=== PATIENT | female | born 1945 | race African-American/Black ===

== ENCOUNTER 2021-09-28 12:58 | Inpatient (IN) | payer OTHER ==
[2021-09-28] MEDS ORDERED: SODIUM CHLORIDE 0.9% 500 ML INFUS.BAG IV ONE (13:09)
[2021-09-28] MEDS ORDERED: ACETAMINOPHEN 1000 MG/100 ML BAG IVPB ONE (13:09)
[2021-09-28] MEDS ORDERED: ACETAMINOPHEN INJECTION 100 ML IVPB ONE (13:42)
[2021-09-28 14:02] LABS: HEMATOCRIT 31.1 % (32.4-45.2); HEMOGLOBIN 9.7 GM/dL (10.7-15.3); MCH 26.4 pg (25.7-33.7); MCHC 31.3 g/dl (32.0-36.0); MEAN CELL VOLUME 84.2 fl (80-96); MEAN PLT VOLUME 9.2 fl (7.5-11.1); PLATELET COUNT 172 10^3/uL (134-434); RDW 19.7 % (11.6-15.6)
[2021-09-28 14:16] LABS: CALCIUM 11.3 mg/dL (8.5-10.1)
[2021-09-28 14:17] LABS: ALBUMIN 2.8 g/dl (3.4-5.0); BLOOD UREA NITROGEN 94.2 mg/dL (7-18)
[2021-09-28 14:20] LABS: CREATININE 1.7 mg/dL (0.55-1.3)
[2021-09-28 14:21] LABS: ACTIVATED PTT 36.4 SECONDS (25.2-36.5); INR 1.28 (0.83-1.09); PROTHROMBIN TIME (PATIENT) 14.8 SEC (9.7-13.0)
[2021-09-28 14:21] LABS: BILIRUBIN,TOTAL 1.8 mg/dL (0.2-1)
[2021-09-28 14:22] LABS: TOT PROT 6.6 g/dl (6.4-8.2)
[2021-09-28 14:30] LABS: EPI CELLS 7 /uL (0-25.1); HYALINE CASTS 0 /uL (0-3.1); URINE APPEARANCE CLEAR; URINE BACTERIA 149 /uL (0-1359); URINE BILIRUBIN NEGATIVE (NEGATIVE); URINE COLOR DK YELLOW; URINE GLUCOSE (UA) NEGATIVE (NEGATIVE); URINE KETONE NEGATIVE (NEGATIVE); URINE LEUK ESTERASE NEGATIVE (NEGATIVE); URINE NITRITE NEGATIVE (NEGATIVE); URINE PROTEIN 1+ (NEGATIVE); URINE RBC 12 /uL (0-23.9); URINE UROBILINOGEN 0.2 mg/dL (0.2-1.0); URINE WBC 3 /uL (0-25.8)
[2021-09-28] MEDS ORDERED: NOREPINEPHRINE D5W PREMIX 16,000 MCG/500 ML BAG IVPB SCH (15:30)
[2021-09-28] MEDS ORDERED: RAPID SEQUENCE INTUBATION KIT NR ONE (15:56)
[2021-09-28] MEDS ORDERED: VASOPRESSIN 40 UNITS/100 ML BAG IV SCH (16:00)
[2021-09-28] MEDS ORDERED: MIDAZOLAM IN 0.9 % SOD.CHLORID 1 MG/1 ML PLAST..BAG ONE (16:29)
[2021-09-28] MEDS ORDERED: MIDAZOLAM IN 0.9 % SOD.CHLORID 100 MG/100 ML PLAST..BAG IVPB SCH (16:30)
[2021-09-28] MEDS ORDERED: FENTANYL IVPB 500 MCG/100 ML BAG IVPB SCH (16:30)
[2021-09-28] MEDS ORDERED: FENTANYL NS IVPB 500 MCG/100 ML BAG IVPB ONE (16:50)
[2021-09-28 17:13] LABS: ANISOCYTOSIS 1+; MACROCYTOSIS 1+; OVALOCYTE 1+; PLATELET ESTIMATE NORMAL
[2021-09-28 17:18] LABS: ARTERIAL BLD GAS O2 SATURATION 99.7 % (95-98); ARTERIAL BLOOD GAS BASE EXCESS 0.9 mmol/L (-2-2); ARTERIAL BLOOD GAS PO2 294.8 mmHg (80-100); ARTERIAL BLOOD GAS pH 7.366 (7.350-7.450)
[2021-09-28 17:20] LABS: ALLENS TEST POSITIVE
[2021-09-28 17:21] LABS: VENT MODE A/C; VENT RATE 14
[2021-09-28] MEDS: LACTATED RINGERS SOLUTION 1,000 ML/1,000 ML INFUS.BAG IV SCH (19:00)
[2021-09-28] MEDS: NOREPINEPHRINE D5W PREMIX 16,000 MCG/500 ML BAG IVPB SCH (19:00)
[2021-09-28] MEDS: MIDAZOLAM IN 0.9 % SOD.CHLORID 100 MG/100 ML PLAST..BAG IVPB SCH (19:00)
[2021-09-28] MEDS ORDERED: FENTANYL NS IVPB 500 MCG/100 ML BAG IVPB SCH (19:07)
[2021-09-28] MEDS ORDERED: DEXTROSE 5%-WATER 100 ML IVPB ONE (20:00)
[2021-09-28] MEDS ORDERED: PIPERACILLIN/TAZOBACTAM 4.5 GM VIAL IVPB ONE (20:00)
[2021-09-28] MEDS: VASOPRESSIN 40 UNITS/100 ML BAG IV SCH (21:03)
[2021-09-28] MEDS: VANCOMYCIN IVPB SCH (21:06)
[2021-09-28] MEDS: PIPERACILLIN/TAZOB 4.5 GM 4.5 GM in DEXTROSE 5%-WATER 100 ML IVPB SCH (21:07)
[2021-09-28] MEDS: MUPIROCIN 2% TOPICAL OINTMENT FOR DECOLONIZATION NS SCH (21:08)
[2021-09-28] MEDS: CHLORHEXIDINE GLUCONATE 4% CLEANSER FOR DECOLONIZATION TP SCH (21:08)
[2021-09-28] MEDS: HEPARIN NA (PORCINE) 5,000 UNITS/ML 1ML VIAL SQ SCH (21:10)
[2021-09-28] MEDS: ATORVASTATIN CA 20 MG TABLET (FP) PO SCH (21:10)
[2021-09-28] MEDS ORDERED: CHLORHEXIDINE GLUCONATE 4% CLEANSER FOR DECOLONIZATION TP SCH (22:00)
[2021-09-28] MEDS ORDERED: MUPIROCIN 2% TOPICAL OINTMENT FOR DECOLONIZATION NS SCH (22:00)
[2021-09-29] MEDS ORDERED: DEXTROSE 5%-WATER 100 ML IVPB ONE ×2 (01:12→07:34)
[2021-09-29] MEDS ORDERED: PIPERACILLIN/TAZOBACTAM 4.5 GM VIAL IVPB ONE ×2 (01:12→07:34)
[2021-09-29] MEDS: PIPERACILLIN/TAZOB 4.5 GM 4.5 GM in DEXTROSE 5%-WATER 100 ML IVPB SCH ×2 (01:29→07:37)
[2021-09-29] MEDS: MIDAZOLAM IN 0.9 % SOD.CHLORID 100 MG/100 ML PLAST..BAG IVPB SCH ×3 (04:30→21:55)
[2021-09-29] MEDS: HEPARIN NA (PORCINE) 5,000 UNITS/ML 1ML VIAL SQ SCH ×3 (05:25→21:56)
[2021-09-29 06:02] LABS: ALLENS TEST POSITIVE; ARTERIAL BLD GAS O2 SATURATION 98.6 % (95-98); ARTERIAL BLOOD GAS BASE EXCESS 0.9 mmol/L (-2-2); ARTERIAL BLOOD GAS PO2 126.6 mmHg (80-100); ARTERIAL BLOOD GAS pH 7.423 (7.350-7.450)
[2021-09-29 06:03] LABS: VENT MODE A/C; VENT RATE 14
[2021-09-29 07:24] LABS: HEMOGLOBIN 10.1 GM/dL (10.7-15.3); MCH 26.6 pg (25.7-33.7); MCHC 32.5 g/dl (32.0-36.0); MEAN CELL VOLUME 81.8 fl (80-96); MEAN PLT VOLUME 9.5 fl (7.5-11.1); PLATELET COUNT 201 10^3/uL (134-434); RBC 3.79 M/mm3 (3.60-5.2); RDW 19.8 % (11.6-15.6); WHITE BLOOD COUNT 5.5 K/mm3 (4.0-10.0)
[2021-09-29 07:34] LABS: BLOOD UREA NITROGEN 97.9 mg/dL (7-18); CALCIUM 11.2 mg/dL (8.5-10.1); MAGNESIUM 2.6 mg/dL (1.8-2.4)
[2021-09-29 07:35] LABS: ALBUMIN 2.7 g/dl (3.4-5.0)
[2021-09-29 07:38] LABS: CREATININE 1.9 mg/dL (0.55-1.3); PHOSPHOROUS 5.2 mg/dL (2.5-4.9)
[2021-09-29 07:40] LABS: TOT PROT 6.5 g/dl (6.4-8.2)
[2021-09-29] MEDS: VANCOMYCIN IVPB SCH (07:44)
[2021-09-29 09:38] LABS: ANISOCYTOSIS 0; MACROCYTOSIS 0; OVALOCYTE 1+
[2021-09-29] MEDS: PANTOPRAZOLE SODIUM 40 MG VIAL IVPUSH SCH (10:14)
[2021-09-29] MEDS: CINACALCET HCL 30 MG TAB (FP) PO SCH (10:14)
[2021-09-29] MEDS: ASPIRIN 81 MG CHEWABLE TABLETS PO SCH (10:14)
[2021-09-29] MEDS: MUPIROCIN 2% TOPICAL OINTMENT FOR DECOLONIZATION NS SCH ×2 (10:15→21:57)
[2021-09-29] MEDS ORDERED: VANCOMYCIN 1,000 MG in DEXTROSE 5%-WATER - 250 ML IVPB ONE (11:37)
[2021-09-29] MEDS: FENTANYL NS IVPB 500 MCG/100 ML BAG IVPB SCH ×2 (12:21→21:54)
[2021-09-29] MEDS ORDERED: DEXTROSE 5%-WATER - 50 ML IVPB ONE ×2 (15:24→21:40)
[2021-09-29] MEDS ORDERED: PIPERACILLIN/TAZOBACTAM 2.25 GM VIAL IVPB ONE ×2 (15:24→21:40)
[2021-09-29] MEDS: PIPERACILLIN/TAZOB 2.25 GM 2.25 GM in DEXTROSE 5%-WATER - 50 ML IVPB SCH ×2 (15:30→21:55)
[2021-09-29] MEDS: LACTATED RINGERS SOLUTION 1,000 ML/1,000 ML INFUS.BAG IV SCH ×2 (15:31→21:54)
[2021-09-29] MEDS ORDERED: VANCOMYCIN IVPB SCH (20:00)
[2021-09-29] MEDS ORDERED: PIPERACILLIN/TAZOB 4.5 GM 4.5 GM in DEXTROSE 5%-WATER 100 ML IVPB SCH (20:00)
[2021-09-29] MEDS: VASOPRESSIN 40 UNITS/100 ML BAG IV SCH (21:55)
[2021-09-29] MEDS: NOREPINEPHRINE D5W PREMIX 16,000 MCG/500 ML BAG IVPB SCH (21:55)
[2021-09-29] MEDS: CHLORHEXIDINE GLUCONATE 4% CLEANSER FOR DECOLONIZATION TP SCH (21:56)
[2021-09-29] MEDS: ATORVASTATIN CA 20 MG TABLET (FP) PO SCH (21:56)
[2021-09-30] MEDS ORDERED: PIPERACILLIN/TAZOBACTAM 2.25 GM VIAL IVPB ONE ×4 (01:55→21:43)
[2021-09-30] MEDS ORDERED: DEXTROSE 5%-WATER - 50 ML IVPB ONE ×4 (01:55→21:44)
[2021-09-30] MEDS: PIPERACILLIN/TAZOB 2.25 GM 2.25 GM in DEXTROSE 5%-WATER - 50 ML IVPB SCH ×4 (02:26→22:01)
[2021-09-30] MEDS: HEPARIN NA (PORCINE) 5,000 UNITS/ML 1ML VIAL SQ SCH (06:12)
[2021-09-30 08:47] LABS: HEMATOCRIT 32.2 % (32.4-45.2); HEMOGLOBIN 10.6 GM/dL (10.7-15.3); MCH 26.7 pg (25.7-33.7); MCHC 32.8 g/dl (32.0-36.0); MEAN CELL VOLUME 81.3 fl (80-96); MEAN PLT VOLUME 9.5 fl (7.5-11.1); PLATELET COUNT 197 10^3/uL (134-434); RBC 3.97 M/mm3 (3.60-5.2); RDW 20.1 % (11.6-15.6)
[2021-09-30 08:59] LABS: ALBUMIN 2.5 g/dl (3.4-5.0); CALCIUM 10.6 mg/dL (8.5-10.1); MAGNESIUM 2.5 mg/dL (1.8-2.4)
[2021-09-30 09:02] LABS: CREATININE 1.9 mg/dL (0.55-1.3); PHOSPHOROUS 3.8 mg/dL (2.5-4.9)
[2021-09-30] MEDS: MUPIROCIN 2% TOPICAL OINTMENT FOR DECOLONIZATION NS SCH ×2 (09:02→22:02)
[2021-09-30] MEDS: ASPIRIN 81 MG CHEWABLE TABLETS PO SCH (09:02)
[2021-09-30] MEDS: CINACALCET HCL 30 MG TAB (FP) PO SCH (09:03)
[2021-09-30] MEDS: PANTOPRAZOLE SODIUM 40 MG VIAL IVPUSH SCH (09:03)
[2021-09-30 09:04] LABS: BILIRUBIN,TOTAL 1.8 mg/dL (0.2-1); TOT PROT 6.2 g/dl (6.4-8.2)
[2021-09-30 10:21] LABS: ANISOCYTOSIS 2+; MACROCYTOSIS 1+; OVALOCYTE 2+; TEAR DROP CELLS 1+
[2021-09-30] MEDS ORDERED: HEPARIN NA (PORCINE) 5,000 UNITS/ML 1ML VIAL IVPUSH ONE (13:52)
[2021-09-30] MEDS ORDERED: HEPARIN NA (PORCINE) 5,000 UNITS/ML 1ML VIAL IVPUSH PRN ×3 (13:58→14:34)
[2021-09-30] MEDS ORDERED: HEPARIN - 25,000 UNIT in SODIUM CHLORIDE 495 ML IV SCH (14:00)
[2021-09-30] MEDS ORDERED: HEPARIN INFUSION - 500 ML IV SCH (14:45)
[2021-09-30] MEDS: FENTANYL NS IVPB 500 MCG/100 ML BAG IVPB SCH (16:23)
[2021-09-30] MEDS: MIDAZOLAM IN 0.9 % SOD.CHLORID 100 MG/100 ML PLAST..BAG IVPB SCH ×2 (16:24→20:10)
[2021-09-30] MEDS: HEPARIN - 25,000 UNIT in SODIUM CHLORIDE 495 ML IV SCH (16:25)
[2021-09-30] MEDS: NOREPINEPHRINE D5W PREMIX 16,000 MCG/500 ML BAG IVPB SCH ×2 (16:25→20:11)
[2021-09-30] MEDS ORDERED: metoPROLOL SUCCINATE 25 MG TAB.SR.24H (FP) PO ONE (17:43)
[2021-09-30] MEDS: VASOPRESSIN 40 UNITS/100 ML BAG IV SCH (20:10)
[2021-09-30] MEDS: LACTATED RINGERS SOLUTION 1,000 ML/1,000 ML INFUS.BAG IV SCH (20:11)
[2021-09-30 21:46] LABS: CALCIUM 10.1 mg/dL (8.5-10.1)
[2021-09-30 21:47] LABS: BLOOD UREA NITROGEN 95.2 mg/dL (7-18)
[2021-09-30 21:50] LABS: CREATININE 1.9 mg/dL (0.55-1.3)
[2021-09-30 21:58] LABS: MAGNESIUM 2.4 mg/dL (1.8-2.4); PHOSPHOROUS 4.3 mg/dL (2.5-4.9)
[2021-09-30] MEDS: ATORVASTATIN CA 20 MG TABLET (FP) PO SCH (22:01)
[2021-09-30] MEDS: CHLORHEXIDINE GLUCONATE 4% CLEANSER FOR DECOLONIZATION TP SCH (22:02)
[2021-10-01] MEDS ORDERED: DEXTROSE 5%-WATER - 50 ML IVPB ONE ×4 (01:12→22:41)
[2021-10-01] MEDS ORDERED: PIPERACILLIN/TAZOBACTAM 2.25 GM VIAL IVPB ONE ×4 (01:12→22:41)
[2021-10-01] MEDS: PIPERACILLIN/TAZOB 2.25 GM 2.25 GM in DEXTROSE 5%-WATER - 50 ML IVPB SCH ×4 (02:20→22:45)
[2021-10-01 05:50] LABS: BASO % 0.8 % (0-2.0); EOS % 0.2 % (0-4.5); HEMATOCRIT 33.7 % (32.4-45.2); HEMOGLOBIN 10.8 GM/dL (10.7-15.3); LYMPH % 3.5 % (8-40); MCHC 31.9 g/dl (32.0-36.0); MEAN CELL VOLUME 81.7 fl (80-96); MEAN PLT VOLUME 9.8 fl (7.5-11.1); MONO % 6.1 % (3.8-10.2); NEUT % 89.4 % (42.8-82.8); PLATELET COUNT 170 10^3/uL (134-434); RBC 4.13 M/mm3 (3.60-5.2); RDW 19.7 % (11.6-15.6); WHITE BLOOD COUNT 8.6 K/mm3 (4.0-10.0)
[2021-10-01 06:00] LABS: ALBUMIN 2.2 g/dl (3.4-5.0); BLOOD UREA NITROGEN 97.6 mg/dL (7-18); CALCIUM 9.9 mg/dL (8.5-10.1); MAGNESIUM 2.1 mg/dL (1.8-2.4)
[2021-10-01 06:03] LABS: CREATININE 1.9 mg/dL (0.55-1.3); PHOSPHOROUS 3.2 mg/dL (2.5-4.9)
[2021-10-01 06:05] LABS: BILIRUBIN,TOTAL 1.8 mg/dL (0.2-1); TOT PROT 5.8 g/dl (6.4-8.2)
[2021-10-01] MEDS: FENTANYL NS IVPB 500 MCG/100 ML BAG IVPB SCH ×2 (09:21→22:46)
[2021-10-01] MEDS: ASPIRIN 81 MG CHEWABLE TABLETS PO SCH (09:22)
[2021-10-01] MEDS: PANTOPRAZOLE SODIUM 40 MG VIAL IVPUSH SCH (09:22)
[2021-10-01] MEDS: CINACALCET HCL 30 MG TAB (FP) PO SCH (09:22)
[2021-10-01] MEDS: MUPIROCIN 2% TOPICAL OINTMENT FOR DECOLONIZATION NS SCH ×2 (09:22→22:47)
[2021-10-01] MEDS: MIDAZOLAM IN 0.9 % SOD.CHLORID 100 MG/100 ML PLAST..BAG IVPB SCH ×2 (09:23→22:46)
[2021-10-01] MEDS ORDERED: VASOPRESSIN 20 UNITS/ML VIAL IV ONE (11:00)
[2021-10-01] MEDS: VASOPRESSIN 40 UNITS/100 ML BAG IV SCH ×2 (11:10→22:46)
[2021-10-01 12:04] LABS: VENOUS BASE EXCESS -2.3 mmol/L (-2-2); VENOUS PCO2 46.8 mmHg (38-52); VENOUS PH 7.325 (7.310-7.410)
[2021-10-01] MEDS: METOPROLOL TARTRATE 25 MG TABLET (FP) PO SCH ×3 (13:00→23:26)
[2021-10-01] MEDS: MILRINONE 20MG/100ML IVPB - 20,000 MCG/100 ML ML IVPB SCH (15:03)
[2021-10-01] MEDS: HEPARIN - 25,000 UNIT in SODIUM CHLORIDE 495 ML IV SCH (16:02)
[2021-10-01] MEDS: CHLORHEXIDINE GLUCONATE 4% CLEANSER FOR DECOLONIZATION TP SCH (22:47)
[2021-10-01] MEDS: ATORVASTATIN CA 20 MG TABLET (FP) PO SCH (22:47)
[2021-10-02] MEDS: PIPERACILLIN/TAZOB 2.25 GM 2.25 GM in DEXTROSE 5%-WATER - 50 ML IVPB SCH ×2 (03:30→09:19)
[2021-10-02] MEDS ORDERED: PIPERACILLIN/TAZOBACTAM 2.25 GM VIAL IVPB ONE ×2 (05:32→09:04)
[2021-10-02] MEDS ORDERED: DEXTROSE 5%-WATER - 50 ML IVPB ONE ×2 (05:32→09:04)
[2021-10-02 06:42] LABS: HEMATOCRIT 28.3 % (32.4-45.2); HEMOGLOBIN 9.1 GM/dL (10.7-15.3); MCH 26.2 pg (25.7-33.7); MCHC 32.1 g/dl (32.0-36.0); MEAN CELL VOLUME 81.7 fl (80-96); MEAN PLT VOLUME 10.3 fl (7.5-11.1); PLATELET COUNT 140 10^3/uL (134-434); RBC 3.46 M/mm3 (3.60-5.2); RDW 19.7 % (11.6-15.6); WHITE BLOOD COUNT 12.3 K/mm3 (4.0-10.0)
[2021-10-02] MEDS: METOPROLOL TARTRATE 25 MG TABLET (FP) PO SCH ×3 (06:42→17:30)
[2021-10-02 06:57] LABS: ALBUMIN 1.8 g/dl (3.4-5.0); BLOOD UREA NITROGEN 92.2 mg/dL (7-18); CALCIUM 9.7 mg/dL (8.5-10.1); MAGNESIUM 2.3 mg/dL (1.8-2.4)
[2021-10-02 07:00] LABS: CREATININE 1.8 mg/dL (0.55-1.3); PHOSPHOROUS 3.6 mg/dL (2.5-4.9)
[2021-10-02 07:03] LABS: BILIRUBIN,TOTAL 1.8 mg/dL (0.2-1); TOT PROT 5.1 g/dl (6.4-8.2)
[2021-10-02] MEDS: POTASSIUM CHLORIDE 20 MEQ PREMIX IVPB 100 ML IVPB SCH ×3 (09:18→14:49)
[2021-10-02] MEDS: PANTOPRAZOLE SODIUM 40 MG VIAL IVPUSH SCH (09:24)
[2021-10-02] MEDS: ASPIRIN 81 MG CHEWABLE TABLETS PO SCH (09:25)
[2021-10-02] MEDS: CINACALCET HCL 30 MG TAB (FP) PO SCH (09:25)
[2021-10-02] MEDS: MUPIROCIN 2% TOPICAL OINTMENT FOR DECOLONIZATION NS SCH ×2 (09:34→21:45)
[2021-10-02 09:45] LABS: ANISOCYTOSIS 0; MACROCYTOSIS 0; OVALOCYTE 2+
[2021-10-02] MEDS: NOREPINEPHRINE D5W PREMIX 16,000 MCG/500 ML BAG IVPB SCH ×2 (16:25→21:44)
[2021-10-02] MEDS: HEPARIN - 25,000 UNIT in SODIUM CHLORIDE 495 ML IV SCH (18:19)
[2021-10-02] MEDS: MILRINONE 20MG/100ML IVPB - 20,000 MCG/100 ML ML IVPB SCH (18:20)
[2021-10-02] MEDS: VASOPRESSIN 40 UNITS/100 ML BAG IV SCH ×2 (18:34→21:43)
[2021-10-02] MEDS: CHLORHEXIDINE GLUCONATE 4% CLEANSER FOR DECOLONIZATION TP SCH (21:43)
[2021-10-02] MEDS: ATORVASTATIN CA 20 MG TABLET (FP) PO SCH (21:43)
[2021-10-02] MEDS: MIDAZOLAM IN 0.9 % SOD.CHLORID 100 MG/100 ML PLAST..BAG IVPB SCH (21:44)
[2021-10-03] MEDS: MIDAZOLAM IN 0.9 % SOD.CHLORID 100 MG/100 ML PLAST..BAG IVPB SCH ×2 (00:31→20:31)
[2021-10-03] MEDS: METOPROLOL TARTRATE 25 MG TABLET (FP) PO SCH ×4 (00:38→19:27)
[2021-10-03] MEDS: MILRINONE 20MG/100ML IVPB - 20,000 MCG/100 ML ML IVPB SCH ×2 (00:49→16:52)
[2021-10-03] MEDS: FENTANYL NS IVPB 500 MCG/100 ML BAG IVPB SCH (03:10)
[2021-10-03] MEDS: HEPARIN - 25,000 UNIT in SODIUM CHLORIDE 495 ML IV SCH ×2 (03:38→16:52)
[2021-10-03 06:47] LABS: CALCIUM 9.7 mg/dL (8.5-10.1)
[2021-10-03 06:48] LABS: BLOOD UREA NITROGEN 85.5 mg/dL (7-18)
[2021-10-03 06:51] LABS: CREATININE 1.6 mg/dL (0.55-1.3); PHOSPHOROUS 3.3 mg/dL (2.5-4.9)
[2021-10-03] MEDS: ASPIRIN 81 MG CHEWABLE TABLETS PO SCH (10:05)
[2021-10-03] MEDS: PANTOPRAZOLE SODIUM 40 MG VIAL IVPUSH SCH (10:05)
[2021-10-03] MEDS: MUPIROCIN 2% TOPICAL OINTMENT FOR DECOLONIZATION NS SCH (10:05)
[2021-10-03] MEDS: CINACALCET HCL 30 MG TAB (FP) PO SCH (10:11)
[2021-10-03 15:02] VITALS: BMI 25.8
[2021-10-03] MEDS: NOREPINEPHRINE D5W PREMIX 16,000 MCG/500 ML BAG IVPB SCH (20:32)
[2021-10-03] MEDS: VASOPRESSIN 40 UNITS/100 ML BAG IV SCH (20:32)
[2021-10-03] MEDS: ATORVASTATIN CA 20 MG TABLET (FP) PO SCH (21:30)
[2021-10-03] MEDS: CHLORHEXIDINE GLUCONATE 4% CLEANSER FOR DECOLONIZATION TP SCH (21:30)
[2021-10-04] MEDS: METOPROLOL TARTRATE 25 MG TABLET (FP) PO SCH ×4 (00:13→17:09)
[2021-10-04] MEDS: FENTANYL NS IVPB 500 MCG/100 ML BAG IVPB SCH (02:17)
[2021-10-04] MEDS: NOREPINEPHRINE D5W PREMIX 16,000 MCG/500 ML BAG IVPB SCH ×2 (04:07→21:44)
[2021-10-04 07:44] LABS: HEMATOCRIT 23.8 % (32.4-45.2); HEMOGLOBIN 7.8 GM/dL (10.7-15.3); MCH 26.8 pg (25.7-33.7); MCHC 32.7 g/dl (32.0-36.0); MEAN CELL VOLUME 81.9 fl (80-96); MEAN PLT VOLUME 9.9 fl (7.5-11.1); PLATELET COUNT 130 10^3/uL (134-434); RBC 2.91 M/mm3 (3.60-5.2); RDW 20.4 % (11.6-15.6); WHITE BLOOD COUNT 9.8 K/mm3 (4.0-10.0)
[2021-10-04 08:02] LABS: BLOOD UREA NITROGEN 73.9 mg/dL (7-18)
[2021-10-04 08:04] LABS: MAGNESIUM 2.2 mg/dL (1.8-2.4)
[2021-10-04 08:05] LABS: PHOSPHOROUS 3.1 mg/dL (2.5-4.9)
[2021-10-04 08:06] LABS: CREATININE 1.4 mg/dL (0.55-1.3)
[2021-10-04] MEDS: ASPIRIN 81 MG CHEWABLE TABLETS PO SCH (10:55)
[2021-10-04] MEDS: CINACALCET HCL 30 MG TAB (FP) PO SCH (10:55)
[2021-10-04] MEDS: PANTOPRAZOLE SODIUM 40 MG VIAL IVPUSH SCH (10:55)
[2021-10-04] MEDS ORDERED: VANCOMYCIN/WATER FOR INJ (PEG) 1,000 MG/200 ML BAG IVPB ONE (11:00)
[2021-10-04] MEDS: HEPARIN - 25,000 UNIT in SODIUM CHLORIDE 495 ML IV SCH ×2 (11:11→17:10)
[2021-10-04] MEDS: MILRINONE 20MG/100ML IVPB - 20,000 MCG/100 ML ML IVPB SCH ×2 (14:00→20:07)
[2021-10-04] MEDS: VASOPRESSIN 40 UNITS/100 ML BAG IV SCH ×2 (17:11→21:44)
[2021-10-04] MEDS: MIDAZOLAM IN 0.9 % SOD.CHLORID 100 MG/100 ML PLAST..BAG IVPB SCH ×2 (17:11→21:47)
[2021-10-04] MEDS: ATORVASTATIN CA 20 MG TABLET (FP) PO SCH (22:01)
[2021-10-04] MEDS: CHLORHEXIDINE GLUCONATE 4% CLEANSER FOR DECOLONIZATION TP SCH (22:01)
[2021-10-05] MEDS: FENTANYL NS IVPB 500 MCG/100 ML BAG IVPB SCH ×3 (00:04→20:23)
[2021-10-05] MEDS: METOPROLOL TARTRATE 25 MG TABLET (FP) PO SCH ×3 (00:30→12:07)
[2021-10-05] MEDS: MILRINONE 20MG/100ML IVPB - 20,000 MCG/100 ML ML IVPB SCH ×3 (01:19→20:32)
[2021-10-05 07:52] LABS: BASO % 0.1 % (0-2.0); EOS % 0.5 % (0-4.5); LYMPH % 1.7 % (8-40); MCH 26.2 pg (25.7-33.7); MCHC 31.9 g/dl (32.0-36.0); MEAN PLT VOLUME 9.3 fl (7.5-11.1); MONO % 7.3 % (3.8-10.2); NEUT % 90.4 % (42.8-82.8); PLATELET COUNT 127 10^3/uL (134-434); RBC 2.68 M/mm3 (3.60-5.2); RDW 20.4 % (11.6-15.6); WHITE BLOOD COUNT 8.7 K/mm3 (4.0-10.0)
[2021-10-05 08:05] LABS: CALCIUM 9.7 mg/dL (8.5-10.1)
[2021-10-05 08:06] LABS: ALBUMIN 1.7 g/dl (3.4-5.0); BLOOD UREA NITROGEN 66.4 mg/dL (7-18); MAGNESIUM 2.4 mg/dL (1.8-2.4)
[2021-10-05 08:09] LABS: CREATININE 1.2 mg/dL (0.55-1.3); PHOSPHOROUS 2.9 mg/dL (2.5-4.9)
[2021-10-05 08:10] LABS: BILIRUBIN,TOTAL 1.8 mg/dL (0.2-1); TOT PROT 5.1 g/dl (6.4-8.2)
[2021-10-05] MEDS ORDERED: HEPARIN NA (PORCINE) 5,000 UNITS/ML 1ML VIAL IVPUSH PRN ×3 (08:22→08:39)
[2021-10-05] MEDS ORDERED: HEPARIN - 25,000 UNIT in SODIUM CHLORIDE 495 ML IV SCH (08:30)
[2021-10-05] MEDS: PANTOPRAZOLE SODIUM 40 MG VIAL IVPUSH SCH (09:06)
[2021-10-05] MEDS: ASPIRIN 81 MG CHEWABLE TABLETS PO SCH (09:06)
[2021-10-05] MEDS: CINACALCET HCL 30 MG TAB (FP) PO SCH (09:06)
[2021-10-05] MEDS: MIDAZOLAM IN 0.9 % SOD.CHLORID 100 MG/100 ML PLAST..BAG IVPB SCH ×2 (13:08→20:00)
[2021-10-05] MEDS ORDERED: FUROSEMIDE 40 MG/4 ML INJECTABLE VIAL IVPUSH ONE (17:32)
[2021-10-05 19:22] LABS: ARTERIAL BLD GAS O2 SATURATION 98.3 % (95-98); ARTERIAL BLOOD GAS BASE EXCESS -0.7 mmol/L (-2-2); ARTERIAL BLOOD GAS PO2 113.9 mmHg (80-100); ARTERIAL BLOOD GAS pH 7.421 (7.350-7.450)
[2021-10-05 19:26] LABS: VENT RATE 14
[2021-10-05 19:56] LABS: HEMATOCRIT 22.4 % (32.4-45.2); HEMOGLOBIN 7.2 GM/dL (10.7-15.3); MCH 26.7 pg (25.7-33.7); MCHC 32.1 g/dl (32.0-36.0); MEAN CELL VOLUME 83.1 fl (80-96); MEAN PLT VOLUME 9.2 fl (7.5-11.1); PLATELET COUNT 138 10^3/uL (134-434); RDW 20.9 % (11.6-15.6); WHITE BLOOD COUNT 9.3 K/mm3 (4.0-10.0)
[2021-10-05] MEDS: NOREPINEPHRINE D5W PREMIX 16,000 MCG/500 ML BAG IVPB SCH (20:00)
[2021-10-05] MEDS: VASOPRESSIN 40 UNITS/100 ML BAG IV SCH (20:01)
[2021-10-05] MEDS: HEPARIN NA (PORCINE) 5,000 UNITS/ML 1ML VIAL SQ SCH (21:29)
[2021-10-05] MEDS: CHLORHEXIDINE GLUCONATE 4% CLEANSER FOR DECOLONIZATION TP SCH (21:31)
[2021-10-05] MEDS: ATORVASTATIN CA 20 MG TABLET (FP) PO SCH (21:31)
[2021-10-06] MEDS: MILRINONE 20MG/100ML IVPB - 20,000 MCG/100 ML ML IVPB SCH ×3 (04:18→19:07)
[2021-10-06] MEDS: VASOPRESSIN 40 UNITS/100 ML BAG IV SCH ×3 (05:16→23:41)
[2021-10-06] MEDS: HEPARIN NA (PORCINE) 5,000 UNITS/ML 1ML VIAL SQ SCH ×3 (05:21→21:41)
[2021-10-06] MEDS: MIDAZOLAM IN 0.9 % SOD.CHLORID 100 MG/100 ML PLAST..BAG IVPB SCH ×2 (05:31→20:00)
[2021-10-06 07:12] LABS: HEMATOCRIT 21.3 % (32.4-45.2); MCH 26.5 pg (25.7-33.7); MCHC 32.2 g/dl (32.0-36.0); MEAN CELL VOLUME 82.2 fl (80-96); MEAN PLT VOLUME 9.4 fl (7.5-11.1); PLATELET COUNT 149 10^3/uL (134-434); RBC 2.59 M/mm3 (3.60-5.2); RDW 20.5 % (11.6-15.6); WHITE BLOOD COUNT 10.1 K/mm3 (4.0-10.0)
[2021-10-06 07:34] LABS: ALBUMIN 1.7 g/dl (3.4-5.0); CALCIUM 9.7 mg/dL (8.5-10.1)
[2021-10-06 07:35] LABS: BLOOD UREA NITROGEN 63.4 mg/dL (7-18)
[2021-10-06 07:38] LABS: CREATININE 1.1 mg/dL (0.55-1.3)
[2021-10-06 07:39] LABS: TOT PROT 5.2 g/dl (6.4-8.2)
[2021-10-06 07:40] LABS: BILIRUBIN,TOTAL 1.4 mg/dL (0.2-1)
[2021-10-06 07:42] LABS: HEMOGLOBIN 6.9 GM/dL (10.7-15.3)
[2021-10-06] MEDS: ASPIRIN 81 MG CHEWABLE TABLETS PO SCH (09:06)
[2021-10-06] MEDS: CINACALCET HCL 30 MG TAB (FP) PO SCH (09:06)
[2021-10-06] MEDS: PANTOPRAZOLE SODIUM 40 MG VIAL IVPUSH SCH (09:06)
[2021-10-06 12:20] LABS: HEMATOCRIT 21.6 % (32.4-45.2); MCH 26.3 pg (25.7-33.7); MCHC 31.8 g/dl (32.0-36.0); MEAN CELL VOLUME 82.7 fl (80-96); MEAN PLT VOLUME 9.2 fl (7.5-11.1); PLATELET COUNT 155 10^3/uL (134-434); RBC 2.61 M/mm3 (3.60-5.2); RDW 20.7 % (11.6-15.6); WHITE BLOOD COUNT 9.9 K/mm3 (4.0-10.0)
[2021-10-06 12:32] LABS: HEMOGLOBIN 6.9 GM/dL (10.7-15.3)
[2021-10-06] MEDS ORDERED: FENTANYL NS IVPB 500 MCG/100 ML BAG IVPB ONE (17:52)
[2021-10-06] MEDS: FENTANYL NS IVPB 500 MCG/100 ML BAG IVPB SCH (19:03)
[2021-10-06] MEDS: NOREPINEPHRINE D5W PREMIX 16,000 MCG/500 ML BAG IVPB SCH ×2 (20:00→20:54)
[2021-10-06 21:02] LABS: BASO % 0.3 % (0-2.0); EOS % 0.2 % (0-4.5); HEMATOCRIT 24.1 % (32.4-45.2); HEMOGLOBIN 7.8 GM/dL (10.7-15.3); LYMPH % 2.1 % (8-40); MCH 26.7 pg (25.7-33.7); MCHC 32.2 g/dl (32.0-36.0); MEAN PLT VOLUME 8.7 fl (7.5-11.1); MONO % 8.9 % (3.8-10.2); NEUT % 88.5 % (42.8-82.8); PLATELET COUNT 158 10^3/uL (134-434); RDW 19.4 % (11.6-15.6); WHITE BLOOD COUNT 9.9 K/mm3 (4.0-10.0)
[2021-10-06] MEDS: ATORVASTATIN CA 20 MG TABLET (FP) PO SCH (21:41)
[2021-10-06] MEDS: CHLORHEXIDINE GLUCONATE 4% CLEANSER FOR DECOLONIZATION TP SCH (21:41)
[2021-10-07] MEDS: MILRINONE 20MG/100ML IVPB - 20,000 MCG/100 ML ML IVPB SCH ×2 (00:29→17:30)
[2021-10-07] MEDS: MIDAZOLAM IN 0.9 % SOD.CHLORID 100 MG/100 ML PLAST..BAG IVPB SCH ×2 (01:34→21:42)
[2021-10-07] MEDS: HEPARIN NA (PORCINE) 5,000 UNITS/ML 1ML VIAL SQ SCH ×3 (06:28→21:42)
[2021-10-07 07:26] LABS: HEMOGLOBIN 7.8 GM/dL (10.7-15.3); MCHC 32.4 g/dl (32.0-36.0); MEAN CELL VOLUME 83.2 fl (80-96); MEAN PLT VOLUME 9.2 fl (7.5-11.1); PLATELET COUNT 164 10^3/uL (134-434); RBC 2.88 M/mm3 (3.60-5.2); RDW 19.1 % (11.6-15.6); WHITE BLOOD COUNT 9.9 K/mm3 (4.0-10.0)
[2021-10-07 07:52] LABS: ALBUMIN 1.8 g/dl (3.4-5.0); CALCIUM 10.1 mg/dL (8.5-10.1)
[2021-10-07 07:53] LABS: BLOOD UREA NITROGEN 58.5 mg/dL (7-18)
[2021-10-07 07:57] LABS: BILIRUBIN,TOTAL 1.9 mg/dL (0.2-1); TOT PROT 5.5 g/dl (6.4-8.2)
[2021-10-07] MEDS: ASPIRIN 81 MG CHEWABLE TABLETS PO SCH (09:31)
[2021-10-07] MEDS: PANTOPRAZOLE SODIUM 40 MG VIAL IVPUSH SCH (09:31)
[2021-10-07] MEDS: CINACALCET HCL 30 MG TAB (FP) PO SCH (09:31)
[2021-10-07] MEDS ORDERED: FENTANYL NS IVPB 500 MCG/100 ML BAG IVPB ONE (17:38)
[2021-10-07] MEDS: VANCOMYCIN 250 MG/5 ML ORAL SOLUTION PO SCH (18:04)
[2021-10-07] MEDS: NOREPINEPHRINE D5W PREMIX 16,000 MCG/500 ML BAG IVPB SCH (20:30)
[2021-10-07] MEDS: VASOPRESSIN 40 UNITS/100 ML BAG IV SCH (21:38)
[2021-10-07] MEDS: ATORVASTATIN CA 20 MG TABLET (FP) PO SCH (21:42)
[2021-10-07] MEDS: CHLORHEXIDINE GLUCONATE 4% CLEANSER FOR DECOLONIZATION TP SCH (21:42)
[2021-10-08] MEDS: VANCOMYCIN 250 MG/5 ML ORAL SOLUTION PO SCH ×5 (00:11→23:42)
[2021-10-08] MEDS: NOREPINEPHRINE D5W PREMIX 16,000 MCG/500 ML BAG IVPB SCH ×2 (00:14→20:58)
[2021-10-08] MEDS: MILRINONE 20MG/100ML IVPB - 20,000 MCG/100 ML ML IVPB SCH ×3 (01:34→20:55)
[2021-10-08] MEDS: HEPARIN NA (PORCINE) 5,000 UNITS/ML 1ML VIAL SQ SCH ×3 (06:00→22:35)
[2021-10-08 07:12] LABS: HEMATOCRIT 23.2 % (32.4-45.2); HEMOGLOBIN 7.4 GM/dL (10.7-15.3); MCH 26.7 pg (25.7-33.7); MCHC 31.9 g/dl (32.0-36.0); MEAN CELL VOLUME 83.7 fl (80-96); MEAN PLT VOLUME 8.5 fl (7.5-11.1); PLATELET COUNT 178 10^3/uL (134-434); RBC 2.77 M/mm3 (3.60-5.2); RDW 19.2 % (11.6-15.6); WHITE BLOOD COUNT 9.1 K/mm3 (4.0-10.0)
[2021-10-08 07:39] LABS: CALCIUM 10.3 mg/dL (8.5-10.1)
[2021-10-08 07:40] LABS: ALBUMIN 1.8 g/dl (3.4-5.0); BLOOD UREA NITROGEN 53.3 mg/dL (7-18)
[2021-10-08 07:43] LABS: CREATININE 0.8 mg/dL (0.55-1.3)
[2021-10-08 07:44] LABS: BILIRUBIN,TOTAL 1.6 mg/dL (0.2-1)
[2021-10-08 07:45] LABS: TOT PROT 5.4 g/dl (6.4-8.2)
[2021-10-08] MEDS: CINACALCET HCL 30 MG TAB (FP) PO SCH (09:16)
[2021-10-08] MEDS: ASPIRIN 81 MG CHEWABLE TABLETS PO SCH (09:16)
[2021-10-08] MEDS: PANTOPRAZOLE SODIUM 40 MG VIAL IVPUSH SCH (09:17)
[2021-10-08] MEDS: VASOPRESSIN 40 UNITS/100 ML BAG IV SCH ×2 (09:49→20:58)
[2021-10-08] MEDS ORDERED: VANCOMYCIN/WATER FOR INJ (PEG) 1,000 MG/200 ML BAG IVPB ONE (12:32)
[2021-10-08] MEDS ORDERED: FUROSEMIDE 40 MG/4 ML INJECTABLE VIAL IVPUSH ONE (12:41)
[2021-10-08] MEDS ORDERED: FENTANYL NS IVPB 500 MCG/100 ML BAG IVPB ONE (15:55)
[2021-10-08] MEDS: MIDAZOLAM IN 0.9 % SOD.CHLORID 100 MG/100 ML PLAST..BAG IVPB SCH ×2 (15:58→20:58)
[2021-10-08] MEDS: FENTANYL NS IVPB 500 MCG/100 ML BAG IVPB SCH (15:58)
[2021-10-08] MEDS: ATORVASTATIN CA 20 MG TABLET (FP) PO SCH ×2 (22:36→22:53)
[2021-10-08] MEDS: CHLORHEXIDINE GLUCONATE 4% CLEANSER FOR DECOLONIZATION TP SCH (22:36)
[2021-10-08 23:48] LABS: HEMATOCRIT 24.1 % (32.4-45.2); HEMOGLOBIN 7.8 GM/dL (10.7-15.3); MCH 26.7 pg (25.7-33.7); MCHC 32.2 g/dl (32.0-36.0); MEAN CELL VOLUME 82.9 fl (80-96); MEAN PLT VOLUME 7.9 fl (7.5-11.1); PLATELET COUNT 202 10^3/uL (134-434); RBC 2.91 M/mm3 (3.60-5.2); RDW 19.7 % (11.6-15.6); WHITE BLOOD COUNT 7.7 K/mm3 (4.0-10.0)
[2021-10-09] MEDS ORDERED: SODIUM CHLORIDE 500 ML IV STA (00:41)
[2021-10-09] MEDS: MILRINONE 20MG/100ML IVPB - 20,000 MCG/100 ML ML IVPB SCH ×4 (04:52→20:54)
[2021-10-09] MEDS: VANCOMYCIN 250 MG/5 ML ORAL SOLUTION PO SCH ×4 (05:04→23:58)
[2021-10-09] MEDS: HEPARIN NA (PORCINE) 5,000 UNITS/ML 1ML VIAL SQ SCH ×3 (05:04→22:16)
[2021-10-09 06:49] LABS: ANISOCYTOSIS 2+; MACROCYTOSIS 0; ROULEAU 1+; TEAR DROP CELLS 1+
[2021-10-09 07:16] LABS: HEMOGLOBIN 7.6 GM/dL (10.7-15.3); MCH 26.7 pg (25.7-33.7); MCHC 31.7 g/dl (32.0-36.0); MEAN CELL VOLUME 84.3 fl (80-96); MEAN PLT VOLUME 8.6 fl (7.5-11.1); PLATELET COUNT 216 10^3/uL (134-434); RBC 2.85 M/mm3 (3.60-5.2); RDW 19.6 % (11.6-15.6); WHITE BLOOD COUNT 10.1 K/mm3 (4.0-10.0)
[2021-10-09 07:46] LABS: CALCIUM 10.5 mg/dL (8.5-10.1)
[2021-10-09 07:47] LABS: ALBUMIN 1.8 g/dl (3.4-5.0)
[2021-10-09 07:50] LABS: CREATININE 0.8 mg/dL (0.55-1.3)
[2021-10-09 07:52] LABS: BILIRUBIN,TOTAL 1.7 mg/dL (0.2-1); TOT PROT 5.8 g/dl (6.4-8.2)
[2021-10-09] MEDS: ASPIRIN 81 MG CHEWABLE TABLETS PO SCH (09:58)
[2021-10-09] MEDS: CINACALCET HCL 30 MG TAB (FP) PO SCH (09:58)
[2021-10-09] MEDS: PANTOPRAZOLE SODIUM 40 MG VIAL IVPUSH SCH (10:02)
[2021-10-09] MEDS ORDERED: FENTANYL NS IVPB 500 MCG/100 ML BAG IVPB ONE ×2 (11:42→20:48)
[2021-10-09] MEDS ORDERED: FENTANYL IVPB 500 MCG/100 ML BAG IVPB SCH (11:45)
[2021-10-09] MEDS: MIDAZOLAM IN 0.9 % SOD.CHLORID 100 MG/100 ML PLAST..BAG IVPB SCH (11:53)
[2021-10-09] MEDS ORDERED: PIPERACILLIN/TAZOBACTAM 4.5 GM VIAL IVPB ONE ×2 (17:03→20:37)
[2021-10-09] MEDS ORDERED: DEXTROSE 5%-WATER 100 ML IVPB ONE ×2 (17:03→20:38)
[2021-10-09] MEDS: PIPERACILLIN/TAZOB 4.5 GM 4.5 GM in DEXTROSE 5%-WATER 100 ML IVPB SCH (17:46)
[2021-10-09] MEDS ORDERED: INSULIN (NOVOLOG) ASPART 100 UNITS/ML 10ML VIAL ONE ×2 (18:07→20:38)
[2021-10-09] MEDS: PHENYLEPHRINE NS PREMIX 50,000 MCG/500 ML BAG CVP SCH (20:51)
[2021-10-09] MEDS: CHLORHEXIDINE GLUCONATE 4% CLEANSER FOR DECOLONIZATION TP SCH (22:16)
[2021-10-09] MEDS: ATORVASTATIN CA 20 MG TABLET (FP) PO SCH (22:16)
[2021-10-10] MEDS: NOREPINEPHRINE D5W PREMIX 16,000 MCG/500 ML BAG IVPB SCH (02:27)
[2021-10-10] MEDS: VASOPRESSIN 40 UNITS/100 ML BAG IV SCH (02:27)
[2021-10-10] MEDS: PIPERACILLIN/TAZOB 4.5 GM 4.5 GM in DEXTROSE 5%-WATER 100 ML IVPB SCH ×3 (02:28→17:15)
[2021-10-10] MEDS: PHENYLEPHRINE NS PREMIX 50,000 MCG/500 ML BAG CVP SCH (02:28)
[2021-10-10] MEDS ORDERED: INSULIN (NOVOLOG) ASPART 100 UNITS/ML 10ML VIAL ONE ×2 (05:38→19:40)
[2021-10-10 05:39] LABS: ARTERIAL BLD GAS O2 SATURATION 98.2 % (95-98); ARTERIAL BLOOD GAS BASE EXCESS -3.3 mmol/L (-2-2); ARTERIAL BLOOD GAS PO2 119.5 mmHg (80-100); ARTERIAL BLOOD GAS pH 7.357 (7.350-7.450)
[2021-10-10 05:47] LABS: ALLENS TEST POSITIVE
[2021-10-10 05:48] LABS: VENT MODE A/C; VENT RATE 14
[2021-10-10] MEDS: HEPARIN NA (PORCINE) 5,000 UNITS/ML 1ML VIAL SQ SCH ×3 (06:41→22:31)
[2021-10-10] MEDS: VANCOMYCIN 250 MG/5 ML ORAL SOLUTION PO SCH ×4 (06:42→23:20)
[2021-10-10 06:55] LABS: BASO % 0.2 % (0-2.0); EOS % 0.7 % (0-4.5); HEMATOCRIT 23.2 % (32.4-45.2); HEMOGLOBIN 7.4 GM/dL (10.7-15.3); LYMPH % 5.5 % (8-40); MCH 26.7 pg (25.7-33.7); MEAN CELL VOLUME 83.5 fl (80-96); MEAN PLT VOLUME 8.6 fl (7.5-11.1); MONO % 5.6 % (3.8-10.2); PLATELET COUNT 219 10^3/uL (134-434); RBC 2.78 M/mm3 (3.60-5.2)
[2021-10-10 07:19] LABS: ALBUMIN 1.6 g/dl (3.4-5.0); BLOOD UREA NITROGEN 43.2 mg/dL (7-18); MAGNESIUM 2.2 mg/dL (1.8-2.4)
[2021-10-10 07:22] LABS: CREATININE 0.8 mg/dL (0.55-1.3); PHOSPHOROUS 2.8 mg/dL (2.5-4.9)
[2021-10-10 07:24] LABS: BILIRUBIN,TOTAL 1.8 mg/dL (0.2-1); TOT PROT 5.7 g/dl (6.4-8.2)
[2021-10-10] MEDS ORDERED: KCL 10 MEQ IVPB 10 MEQ/100 ML INFUS.BAG IVPB SCH (08:00)
[2021-10-10] MEDS: MILRINONE 20MG/100ML IVPB - 20,000 MCG/100 ML ML IVPB SCH ×2 (08:12→13:58)
[2021-10-10] MEDS: CINACALCET HCL 30 MG TAB (FP) PO SCH (09:01)
[2021-10-10] MEDS: PANTOPRAZOLE SODIUM 40 MG VIAL IVPUSH SCH (09:01)
[2021-10-10] MEDS: ASPIRIN 81 MG CHEWABLE TABLETS PO SCH (09:02)
[2021-10-10] MEDS: FENTANYL NS IVPB 500 MCG/100 ML BAG IVPB SCH (12:31)
[2021-10-10] MEDS ORDERED: PIPERACILLIN/TAZOBACTAM 4.5 GM VIAL IVPB ONE ×2 (17:03→19:40)
[2021-10-10] MEDS ORDERED: DEXTROSE 5%-WATER 100 ML IVPB ONE ×2 (17:03→19:40)
[2021-10-10] MEDS: CHLORHEXIDINE GLUCONATE 4% CLEANSER FOR DECOLONIZATION TP SCH (22:31)
[2021-10-10] MEDS: ATORVASTATIN CA 20 MG TABLET (FP) PO SCH (22:31)
[2021-10-10] MEDS: MIDAZOLAM IN 0.9 % SOD.CHLORID 100 MG/100 ML PLAST..BAG IVPB SCH ×2 (23:20)
[2021-10-11] MEDS: PIPERACILLIN/TAZOB 4.5 GM 4.5 GM in DEXTROSE 5%-WATER 100 ML IVPB SCH ×3 (01:00→17:29)
[2021-10-11] MEDS: NOREPINEPHRINE D5W PREMIX 16,000 MCG/500 ML BAG IVPB SCH ×2 (04:07→16:36)
[2021-10-11] MEDS: VASOPRESSIN 40 UNITS/100 ML BAG IV SCH ×2 (04:07→09:51)
[2021-10-11 07:15] LABS: HEMATOCRIT 23.6 % (32.4-45.2); HEMOGLOBIN 7.7 GM/dL (10.7-15.3); MCH 27.2 pg (25.7-33.7); MCHC 32.7 g/dl (32.0-36.0); MEAN CELL VOLUME 82.9 fl (80-96); MEAN PLT VOLUME 7.9 fl (7.5-11.1); PLATELET COUNT 211 10^3/uL (134-434); RBC 2.84 M/mm3 (3.60-5.2); RDW 20.2 % (11.6-15.6); WHITE BLOOD COUNT 7.5 K/mm3 (4.0-10.0)
[2021-10-11 07:33] LABS: ALBUMIN 1.6 g/dl (3.4-5.0); BLOOD UREA NITROGEN 36.1 mg/dL (7-18)
[2021-10-11 07:36] LABS: CREATININE 0.7 mg/dL (0.55-1.3)
[2021-10-11 07:37] LABS: BILIRUBIN,TOTAL 1.6 mg/dL (0.2-1); TOT PROT 5.7 g/dl (6.4-8.2)
[2021-10-11] MEDS ORDERED: POTASSIUM CHLORIDE TABS 20 MEQ TABLET.ER (FP) PO ONE (07:40)
[2021-10-11] MEDS: HEPARIN NA (PORCINE) 5,000 UNITS/ML 1ML VIAL SQ SCH ×3 (07:46→21:14)
[2021-10-11] MEDS: VANCOMYCIN 250 MG/5 ML ORAL SOLUTION PO SCH ×3 (07:46→17:30)
[2021-10-11] MEDS: KCL 10 MEQ IVPB 10 MEQ/100 ML INFUS.BAG IVPB SCH ×3 (07:54→10:12)
[2021-10-11] MEDS: MILRINONE 20MG/100ML IVPB - 20,000 MCG/100 ML ML IVPB SCH ×3 (07:58→21:14)
[2021-10-11] MEDS: ASPIRIN 81 MG CHEWABLE TABLETS PO SCH (09:12)
[2021-10-11] MEDS: CINACALCET HCL 30 MG TAB (FP) PO SCH (09:13)
[2021-10-11] MEDS: PANTOPRAZOLE SODIUM 40 MG VIAL IVPUSH SCH (09:13)
[2021-10-11] MEDS: FENTANYL NS IVPB 500 MCG/100 ML BAG IVPB SCH ×2 (12:00→15:12)
[2021-10-11] MEDS: MIDAZOLAM IN 0.9 % SOD.CHLORID 100 MG/100 ML PLAST..BAG IVPB SCH (15:17)
[2021-10-11] MEDS ORDERED: PIPERACILLIN/TAZOBACTAM 4.5 GM VIAL IVPB ONE (17:24)
[2021-10-11] MEDS ORDERED: DEXTROSE 5%-WATER 100 ML IVPB ONE (17:25)
[2021-10-11] MEDS: ATORVASTATIN CA 20 MG TABLET (FP) PO SCH (21:14)
[2021-10-11] MEDS: CHLORHEXIDINE GLUCONATE 4% CLEANSER FOR DECOLONIZATION TP SCH (21:16)
[2021-10-12] MEDS: VANCOMYCIN 250 MG/5 ML ORAL SOLUTION PO SCH ×2 (00:42→05:08)
[2021-10-12] MEDS: FENTANYL NS IVPB 500 MCG/100 ML BAG IVPB SCH ×3 (01:24→23:30)
[2021-10-12] MEDS: PIPERACILLIN/TAZOB 4.5 GM 4.5 GM in DEXTROSE 5%-WATER 100 ML IVPB SCH ×3 (02:43→17:00)
[2021-10-12] MEDS: MILRINONE 20MG/100ML IVPB - 20,000 MCG/100 ML ML IVPB SCH ×3 (03:38→16:19)
[2021-10-12] MEDS: VASOPRESSIN 40 UNITS/100 ML BAG IV SCH ×2 (03:38→23:30)
[2021-10-12] MEDS: HEPARIN NA (PORCINE) 5,000 UNITS/ML 1ML VIAL SQ SCH ×3 (05:08→21:55)
[2021-10-12 06:48] LABS: CALCIUM 9.6 mg/dL (8.5-10.1)
[2021-10-12 06:49] LABS: ALBUMIN 1.5 g/dl (3.4-5.0); BLOOD UREA NITROGEN 30.8 mg/dL (7-18)
[2021-10-12 06:52] LABS: CREATININE 0.7 mg/dL (0.55-1.3)
[2021-10-12 06:54] LABS: BILIRUBIN,TOTAL 1.5 mg/dL (0.2-1); TOT PROT 5.6 g/dl (6.4-8.2)
[2021-10-12] MEDS: NOREPINEPHRINE D5W PREMIX 16,000 MCG/500 ML BAG IVPB SCH (06:55)
[2021-10-12] MEDS ORDERED: DEXTROSE 5%-WATER 100 ML IVPB ONE ×2 (08:00→15:49)
[2021-10-12] MEDS ORDERED: PIPERACILLIN/TAZOBACTAM 4.5 GM VIAL IVPB ONE ×2 (08:00→15:49)
[2021-10-12] MEDS ORDERED: POTASSIUM CHLORIDE TABS 20 MEQ TABLET.ER (FP) PO ONE (08:19)
[2021-10-12] MEDS ORDERED: POTASSIUM CHLORIDE ORAL LIQUID 20 MEQ/15 ML PO ONE (08:23)
[2021-10-12] MEDS: ASPIRIN 81 MG CHEWABLE TABLETS GT SCH (09:53)
[2021-10-12] MEDS: CINACALCET HCL 30 MG TAB (FP) PO SCH (09:54)
[2021-10-12] MEDS: PANTOPRAZOLE SODIUM 40 MG VIAL IVPUSH SCH (09:54)
[2021-10-12] MEDS: MIDAZOLAM IN 0.9 % SOD.CHLORID 100 MG/100 ML PLAST..BAG IVPB SCH (10:05)
[2021-10-12] MEDS: ALBUMIN HUMAN 25% 12.5 GM/50 ML VIAL IV SCH ×2 (10:09→21:52)
[2021-10-12] MEDS: NOREPINEPHRINE BITARTRATE 16,000 MCG in DEXTROSE 5%-WATER - 16,000 MCG/500 ML INFUS.BAG IVPB SCH ×2 (10:15→13:42)
[2021-10-12] MEDS: FUROSEMIDE 40 MG/4 ML INJECTABLE VIAL IVPUSH SCH ×2 (10:56→21:56)
[2021-10-12] MEDS: VANCOMYCIN 250 MG/5 ML ORAL SOLUTION GT SCH ×2 (11:00→17:00)
[2021-10-12] MEDS: AMINO ACIDS/PROTEIN HYDROLYS 30 ML LIQUID.PKT PO SCH (16:41)
[2021-10-12] MEDS: ATORVASTATIN CA 20 MG TABLET (FP) GT SCH (21:56)
[2021-10-12] MEDS: CHLORHEXIDINE GLUCONATE 4% CLEANSER FOR DECOLONIZATION TP SCH (21:56)
[2021-10-13] MEDS: VANCOMYCIN 250 MG/5 ML ORAL SOLUTION GT SCH ×4 (00:20→17:14)
[2021-10-13] MEDS ORDERED: DEXTROSE 5%-WATER 100 ML IVPB ONE ×3 (01:04→15:50)
[2021-10-13] MEDS ORDERED: PIPERACILLIN/TAZOBACTAM 4.5 GM VIAL IVPB ONE ×3 (01:04→15:50)
[2021-10-13] MEDS: PIPERACILLIN/TAZOB 4.5 GM 4.5 GM in DEXTROSE 5%-WATER 100 ML IVPB SCH ×3 (02:00→17:15)
[2021-10-13] MEDS: NOREPINEPHRINE BITARTRATE 16,000 MCG in DEXTROSE 5%-WATER - 16,000 MCG/500 ML INFUS.BAG IVPB SCH ×2 (04:24→10:15)
[2021-10-13] MEDS: MILRINONE 20MG/100ML IVPB - 20,000 MCG/100 ML ML IVPB SCH ×2 (04:26→15:58)
[2021-10-13] MEDS: HEPARIN NA (PORCINE) 5,000 UNITS/ML 1ML VIAL SQ SCH ×3 (05:11→21:21)
[2021-10-13] MEDS: MIDAZOLAM IN 0.9 % SOD.CHLORID 100 MG/100 ML PLAST..BAG IVPB SCH ×3 (05:14→17:05)
[2021-10-13] MEDS ORDERED: POTASSIUM CHLORIDE ORAL LIQUID 20 MEQ/15 ML PO ONE (08:12)
[2021-10-13] MEDS: AMINO ACIDS/PROTEIN HYDROLYS 30 ML LIQUID.PKT PO SCH ×2 (08:14→17:16)
[2021-10-13] MEDS: CINACALCET HCL 30 MG TAB (FP) PO SCH (10:14)
[2021-10-13] MEDS: PANTOPRAZOLE SODIUM 40 MG VIAL IVPUSH SCH (10:14)
[2021-10-13] MEDS: ASPIRIN 81 MG CHEWABLE TABLETS GT SCH (10:14)
[2021-10-13] MEDS: FENTANYL NS IVPB 500 MCG/100 ML BAG IVPB SCH ×3 (10:16→22:00)
[2021-10-13 15:44] LABS: HEMATOCRIT 22.5 % (32.4-45.2); HEMOGLOBIN 7.1 GM/dL (10.7-15.3); MCH 26.5 pg (25.7-33.7); MCHC 31.5 g/dl (32.0-36.0); MEAN CELL VOLUME 84.4 fl (80-96); MEAN PLT VOLUME 7.8 fl (7.5-11.1); PLATELET COUNT 172 10^3/uL (134-434); RBC 2.66 M/mm3 (3.60-5.2); WHITE BLOOD COUNT 9.5 K/mm3 (4.0-10.0)
[2021-10-13 16:09] LABS: CALCIUM 9.5 mg/dL (8.5-10.1)
[2021-10-13 16:10] LABS: ALBUMIN 1.6 g/dl (3.4-5.0); BLOOD UREA NITROGEN 31.4 mg/dL (7-18)
[2021-10-13 16:13] LABS: CREATININE 0.8 mg/dL (0.55-1.3)
[2021-10-13 16:14] LABS: TOT PROT 5.4 g/dl (6.4-8.2)
[2021-10-13 16:15] LABS: BILIRUBIN,TOTAL 1.5 mg/dL (0.2-1)
[2021-10-13] MEDS: VASOPRESSIN 40 UNITS/100 ML BAG IV SCH (19:36)
[2021-10-13] MEDS: ATORVASTATIN CA 20 MG TABLET (FP) GT SCH (21:22)
[2021-10-13] MEDS: CHLORHEXIDINE GLUCONATE 4% CLEANSER FOR DECOLONIZATION TP SCH (21:22)
[2021-10-14] MEDS ORDERED: PIPERACILLIN/TAZOBACTAM 4.5 GM VIAL IVPB ONE ×3 (00:18→17:54)
[2021-10-14] MEDS ORDERED: DEXTROSE 5%-WATER 100 ML IVPB ONE ×3 (00:18→17:55)
[2021-10-14] MEDS: VANCOMYCIN 250 MG/5 ML ORAL SOLUTION GT SCH ×4 (00:22→18:09)
[2021-10-14] MEDS: MILRINONE 20MG/100ML IVPB - 20,000 MCG/100 ML ML IVPB SCH ×5 (01:00→20:47)
[2021-10-14] MEDS: PIPERACILLIN/TAZOB 4.5 GM 4.5 GM in DEXTROSE 5%-WATER 100 ML IVPB SCH ×3 (02:30→18:07)
[2021-10-14] MEDS: HEPARIN NA (PORCINE) 5,000 UNITS/ML 1ML VIAL SQ SCH ×2 (05:58→22:14)
[2021-10-14 06:48] LABS: HEMATOCRIT 22.6 % (32.4-45.2); HEMOGLOBIN 7.2 GM/dL (10.7-15.3); MCH 26.5 pg (25.7-33.7); MCHC 31.6 g/dl (32.0-36.0); MEAN CELL VOLUME 83.7 fl (80-96); MEAN PLT VOLUME 7.9 fl (7.5-11.1); PLATELET COUNT 165 10^3/uL (134-434); RDW 20.8 % (11.6-15.6); WHITE BLOOD COUNT 8.7 K/mm3 (4.0-10.0)
[2021-10-14 07:11] LABS: ALBUMIN 1.6 g/dl (3.4-5.0); BLOOD UREA NITROGEN 31.5 mg/dL (7-18); CALCIUM 9.5 mg/dL (8.5-10.1)
[2021-10-14 07:14] LABS: CREATININE 0.8 mg/dL (0.55-1.3)
[2021-10-14 07:16] LABS: BILIRUBIN,TOTAL 1.7 mg/dL (0.2-1); TOT PROT 5.3 g/dl (6.4-8.2)
[2021-10-14] MEDS: FENTANYL NS IVPB 500 MCG/100 ML BAG IVPB SCH ×3 (07:35→20:47)
[2021-10-14] MEDS: VASOPRESSIN 40 UNITS/100 ML BAG IV SCH ×2 (07:38→20:00)
[2021-10-14 07:54] LABS: HEMOGLOBIN 7.4 GM/dL (10.7-15.3); MCH 26.8 pg (25.7-33.7); MEAN CELL VOLUME 83.8 fl (80-96); MEAN PLT VOLUME 7.5 fl (7.5-11.1); PLATELET COUNT 148 10^3/uL (134-434); RBC 2.74 M/mm3 (3.60-5.2); RDW 20.4 % (11.6-15.6); WHITE BLOOD COUNT 8.1 K/mm3 (4.0-10.0)
[2021-10-14] MEDS ORDERED: POTASSIUM CHLORIDE ORAL LIQUID 20 MEQ/15 ML PO ONE (08:22)
[2021-10-14] MEDS ORDERED: ASPIRIN 81 MG CHEWABLE TABLETS PO ONE (09:44)
[2021-10-14] MEDS: NOREPINEPHRINE BITARTRATE 16,000 MCG in DEXTROSE 5%-WATER - 16,000 MCG/500 ML INFUS.BAG IVPB SCH (09:48)
[2021-10-14] MEDS: PANTOPRAZOLE SODIUM 40 MG VIAL IVPUSH SCH (09:56)
[2021-10-14] MEDS: CINACALCET HCL 30 MG TAB (FP) PO SCH (09:56)
[2021-10-14] MEDS: AMINO ACIDS/PROTEIN HYDROLYS 30 ML LIQUID.PKT PO SCH ×2 (09:57→18:11)
[2021-10-14] MEDS ORDERED: ROCURONIUM BROMIDE 50 MG/5 ML VIAL IV ONE (10:02)
[2021-10-14] MEDS: ASPIRIN 81 MG CHEWABLE TABLETS GT SCH (10:08)
[2021-10-14] MEDS: SODIUM CHLORIDE 0.45%/POT 20 MEQ/1,000 ML INFUS.BAG IV SCH ×2 (10:36→22:05)
[2021-10-14] MEDS: MIDAZOLAM IN 0.9 % SOD.CHLORID 100 MG/100 ML PLAST..BAG IVPB SCH ×2 (13:49→15:39)
[2021-10-14] MEDS ORDERED: HEPARIN NA (PORCINE) 5,000 UNITS/ML 1ML VIAL SQ SCH (14:00)
[2021-10-14] MEDS ORDERED: DEXMEDETOMIDINE IN 0.9 % NACL 400 MCG/100 ML VIAL IVPB SCH (15:30)
[2021-10-14] MEDS: DEXMEDETOMIDINE IN 0.9 % NACL 400 MCG/100 ML VIAL IVPB SCH (18:04)
[2021-10-14] MEDS: CHLORHEXIDINE GLUCONATE 4% CLEANSER FOR DECOLONIZATION TP SCH (22:16)
[2021-10-14] MEDS: ATORVASTATIN CA 20 MG TABLET (FP) GT SCH (22:16)
[2021-10-15] MEDS: VANCOMYCIN 250 MG/5 ML ORAL SOLUTION GT SCH ×4 (01:00→18:31)
[2021-10-15] MEDS ORDERED: DEXTROSE 5%-WATER 100 ML IVPB ONE ×4 (01:07→18:11)
[2021-10-15] MEDS ORDERED: PIPERACILLIN/TAZOBACTAM 4.5 GM VIAL IVPB ONE ×4 (01:07→18:11)
[2021-10-15] MEDS: PIPERACILLIN/TAZOB 4.5 GM 4.5 GM in DEXTROSE 5%-WATER 100 ML IVPB SCH ×3 (01:16→18:32)
[2021-10-15] MEDS: NOREPINEPHRINE BITARTRATE 16,000 MCG in DEXTROSE 5%-WATER - 16,000 MCG/500 ML INFUS.BAG IVPB SCH ×2 (02:09→09:54)
[2021-10-15] MEDS: MILRINONE 20MG/100ML IVPB - 20,000 MCG/100 ML ML IVPB SCH ×3 (02:09→21:14)
[2021-10-15] MEDS: VASOPRESSIN 40 UNITS/100 ML BAG IV SCH ×2 (02:09→18:32)
[2021-10-15] MEDS: HEPARIN NA (PORCINE) 5,000 UNITS/ML 1ML VIAL SQ SCH ×3 (05:17→21:11)
[2021-10-15] MEDS: FENTANYL NS IVPB 500 MCG/100 ML BAG IVPB SCH ×2 (05:50→16:00)
[2021-10-15] MEDS: SODIUM CHLORIDE 0.45%/POT 20 MEQ/1,000 ML INFUS.BAG IV SCH ×2 (06:07→09:53)
[2021-10-15 06:27] LABS: HEMATOCRIT 23.4 % (32.4-45.2); HEMOGLOBIN 7.3 GM/dL (10.7-15.3); MCH 26.5 pg (25.7-33.7); MCHC 31.3 g/dl (32.0-36.0); MEAN CELL VOLUME 84.7 fl (80-96); MEAN PLT VOLUME 8.5 fl (7.5-11.1); PLATELET COUNT 150 10^3/uL (134-434); RBC 2.76 M/mm3 (3.60-5.2); RDW 20.2 % (11.6-15.6); WHITE BLOOD COUNT 9.9 K/mm3 (4.0-10.0)
[2021-10-15 06:48] LABS: BLOOD UREA NITROGEN 30.4 mg/dL (7-18); CALCIUM 9.5 mg/dL (8.5-10.1)
[2021-10-15 06:49] LABS: ALBUMIN 1.5 g/dl (3.4-5.0)
[2021-10-15 06:52] LABS: CREATININE 0.9 mg/dL (0.55-1.3)
[2021-10-15 06:53] LABS: BILIRUBIN,TOTAL 1.8 mg/dL (0.2-1); TOT PROT 5.2 g/dl (6.4-8.2)
[2021-10-15] MEDS: AMINO ACIDS/PROTEIN HYDROLYS 30 ML LIQUID.PKT PO SCH ×2 (09:53→18:31)
[2021-10-15] MEDS: ASPIRIN 81 MG CHEWABLE TABLETS GT SCH (10:18)
[2021-10-15] MEDS: CINACALCET HCL 30 MG TAB (FP) PO SCH (10:18)
[2021-10-15] MEDS: PANTOPRAZOLE SODIUM 40 MG VIAL IVPUSH SCH (10:18)
[2021-10-15] MEDS: DEXMEDETOMIDINE IN 0.9 % NACL 400 MCG/100 ML VIAL IVPB SCH (18:31)
[2021-10-15] MEDS: CHLORHEXIDINE GLUCONATE 4% CLEANSER FOR DECOLONIZATION TP SCH (21:13)
[2021-10-15] MEDS: ATORVASTATIN CA 20 MG TABLET (FP) GT SCH (21:13)
[2021-10-16] MEDS ORDERED: PIPERACILLIN/TAZOBACTAM 4.5 GM VIAL IVPB ONE ×3 (00:59→17:52)
[2021-10-16] MEDS ORDERED: DEXTROSE 5%-WATER 100 ML IVPB ONE ×3 (00:59→17:52)
[2021-10-16] MEDS: VANCOMYCIN 250 MG/5 ML ORAL SOLUTION GT SCH ×5 (01:06→23:26)
[2021-10-16] MEDS: PIPERACILLIN/TAZOB 4.5 GM 4.5 GM in DEXTROSE 5%-WATER 100 ML IVPB SCH ×3 (01:06→18:13)
[2021-10-16] MEDS: FENTANYL NS IVPB 500 MCG/100 ML BAG IVPB SCH ×3 (02:40→23:21)
[2021-10-16] MEDS: MILRINONE 20MG/100ML IVPB - 20,000 MCG/100 ML ML IVPB SCH ×6 (02:41→19:07)
[2021-10-16] MEDS: HEPARIN NA (PORCINE) 5,000 UNITS/ML 1ML VIAL SQ SCH ×3 (05:13→21:28)
[2021-10-16 07:29] LABS: HEMATOCRIT 24.3 % (32.4-45.2); HEMOGLOBIN 7.7 GM/dL (10.7-15.3); MCH 26.6 pg (25.7-33.7); MCHC 31.5 g/dl (32.0-36.0); MEAN CELL VOLUME 84.2 fl (80-96); MEAN PLT VOLUME 7.8 fl (7.5-11.1); PLATELET COUNT 114 10^3/uL (134-434); RBC 2.89 M/mm3 (3.60-5.2); RDW 20.8 % (11.6-15.6); WHITE BLOOD COUNT 7.8 K/mm3 (4.0-10.0)
[2021-10-16 07:49] LABS: ALBUMIN 1.4 g/dl (3.4-5.0); BLOOD UREA NITROGEN 31.7 mg/dL (7-18); CALCIUM 9.8 mg/dL (8.5-10.1)
[2021-10-16 07:51] LABS: CREATININE 0.9 mg/dL (0.55-1.3)
[2021-10-16 07:53] LABS: BILIRUBIN,TOTAL 2.1 mg/dL (0.2-1); TOT PROT 5.1 g/dl (6.4-8.2)
[2021-10-16] MEDS: VASOPRESSIN 40 UNITS/100 ML BAG IV SCH ×2 (08:12→19:46)
[2021-10-16] MEDS: CINACALCET HCL 30 MG TAB (FP) PO SCH (10:01)
[2021-10-16] MEDS: AMINO ACIDS/PROTEIN HYDROLYS 30 ML LIQUID.PKT PO SCH ×2 (10:01→18:13)
[2021-10-16] MEDS: PANTOPRAZOLE SODIUM 40 MG VIAL IVPUSH SCH (10:01)
[2021-10-16] MEDS: ASPIRIN 81 MG CHEWABLE TABLETS GT SCH (10:01)
[2021-10-16] MEDS: NOREPINEPHRINE BITARTRATE 16,000 MCG in DEXTROSE 5%-WATER - 16,000 MCG/500 ML INFUS.BAG IVPB SCH ×2 (10:02→21:22)
[2021-10-16 12:42] LABS: HEMATOCRIT 22.8 % (32.4-45.2); HEMOGLOBIN 7.2 GM/dL (10.7-15.3); MCH 26.4 pg (25.7-33.7); MCHC 31.7 g/dl (32.0-36.0); MEAN CELL VOLUME 83.3 fl (80-96); MEAN PLT VOLUME 8.6 fl (7.5-11.1); PLATELET COUNT 113 10^3/uL (134-434); RBC 2.73 M/mm3 (3.60-5.2); RDW 20.4 % (11.6-15.6); WHITE BLOOD COUNT 6.1 K/mm3 (4.0-10.0)
[2021-10-16] MEDS: MIDODRINE HCL 5 MG TABLET NGT SCH ×2 (13:51→18:13)
[2021-10-16] MEDS: COLLAGENASE CLOSTRIDIUM HIST. 30 GRAMS TUBE TP SCH (18:51)
[2021-10-16] MEDS: CHLORHEXIDINE GLUCONATE 4% CLEANSER FOR DECOLONIZATION TP SCH (21:30)
[2021-10-16] MEDS: ATORVASTATIN CA 20 MG TABLET (FP) GT SCH (21:30)
[2021-10-17] MEDS ORDERED: DEXTROSE 5%-WATER 100 ML IVPB ONE ×3 (01:15→18:39)
[2021-10-17] MEDS ORDERED: PIPERACILLIN/TAZOBACTAM 4.5 GM VIAL IVPB ONE ×3 (01:15→18:39)
[2021-10-17] MEDS: PIPERACILLIN/TAZOB 4.5 GM 4.5 GM in DEXTROSE 5%-WATER 100 ML IVPB SCH ×3 (01:20→18:44)
[2021-10-17] MEDS: VASOPRESSIN 40 UNITS/100 ML BAG IV SCH ×2 (02:39→19:51)
[2021-10-17] MEDS: VANCOMYCIN 250 MG/5 ML ORAL SOLUTION GT SCH ×3 (05:16→18:45)
[2021-10-17] MEDS: HEPARIN NA (PORCINE) 5,000 UNITS/ML 1ML VIAL SQ SCH ×3 (05:17→21:28)
[2021-10-17 07:04] LABS: CALCIUM 9.7 mg/dL (8.5-10.1)
[2021-10-17 07:05] LABS: ALBUMIN 1.3 g/dl (3.4-5.0); BLOOD UREA NITROGEN 33.7 mg/dL (7-18)
[2021-10-17 07:08] LABS: CREATININE 1.1 mg/dL (0.55-1.3)
[2021-10-17 07:09] LABS: BILIRUBIN,TOTAL 1.5 mg/dL (0.2-1)
[2021-10-17 07:49] LABS: HEMOGLOBIN 7.7 GM/dL (10.7-15.3); MCH 26.8 pg (25.7-33.7); MEAN CELL VOLUME 83.8 fl (80-96); MEAN PLT VOLUME 8.4 fl (7.5-11.1); PLATELET COUNT 108 10^3/uL (134-434); RBC 2.87 M/mm3 (3.60-5.2); RDW 20.5 % (11.6-15.6); WHITE BLOOD COUNT 7.5 K/mm3 (4.0-10.0)
[2021-10-17] MEDS: FENTANYL NS IVPB 500 MCG/100 ML BAG IVPB SCH ×3 (08:35→21:21)
[2021-10-17] MEDS: NOREPINEPHRINE BITARTRATE 16,000 MCG in DEXTROSE 5%-WATER - 16,000 MCG/500 ML INFUS.BAG IVPB SCH (10:07)
[2021-10-17] MEDS: PANTOPRAZOLE SODIUM 40 MG VIAL IVPUSH SCH (10:11)
[2021-10-17] MEDS: AMINO ACIDS/PROTEIN HYDROLYS 30 ML LIQUID.PKT PO SCH ×2 (10:11→18:44)
[2021-10-17] MEDS: ASPIRIN 81 MG CHEWABLE TABLETS GT SCH (10:11)
[2021-10-17] MEDS: MIDODRINE HCL 5 MG TABLET NGT SCH ×3 (10:11→18:44)
[2021-10-17] MEDS: CINACALCET HCL 30 MG TAB (FP) PO SCH (10:11)
[2021-10-17] MEDS: COLLAGENASE CLOSTRIDIUM HIST. 30 GRAMS TUBE TP SCH (12:35)
[2021-10-17] MEDS: MILRINONE 20MG/100ML IVPB - 20,000 MCG/100 ML ML IVPB SCH (16:19)
[2021-10-17] MEDS: CHLORHEXIDINE GLUCONATE 4% CLEANSER FOR DECOLONIZATION TP SCH (21:28)
[2021-10-17] MEDS: ATORVASTATIN CA 20 MG TABLET (FP) GT SCH (21:30)
[2021-10-18] MEDS: VASOPRESSIN 40 UNITS/100 ML BAG IV SCH ×3 (00:21→20:46)
[2021-10-18] MEDS ORDERED: DEXTROSE 5%-WATER 100 ML IVPB ONE ×3 (00:58→11:44)
[2021-10-18] MEDS ORDERED: PIPERACILLIN/TAZOBACTAM 4.5 GM VIAL IVPB ONE ×3 (00:58→11:44)
[2021-10-18] MEDS: VANCOMYCIN 250 MG/5 ML ORAL SOLUTION GT SCH ×5 (01:00→23:24)
[2021-10-18] MEDS: PIPERACILLIN/TAZOB 4.5 GM 4.5 GM in DEXTROSE 5%-WATER 100 ML IVPB SCH ×3 (01:04→17:16)
[2021-10-18] MEDS: MILRINONE 20MG/100ML IVPB - 20,000 MCG/100 ML ML IVPB SCH ×3 (04:00→16:29)
[2021-10-18] MEDS: HEPARIN NA (PORCINE) 5,000 UNITS/ML 1ML VIAL SQ SCH ×3 (05:32→23:24)
[2021-10-18 07:06] LABS: HEMATOCRIT 21.7 % (32.4-45.2); MCH 26.1 pg (25.7-33.7); MCHC 31.8 g/dl (32.0-36.0); MEAN CELL VOLUME 82.2 fl (80-96); PLATELET COUNT 97 10^3/uL (134-434); RBC 2.64 M/mm3 (3.60-5.2); RDW 20.2 % (11.6-15.6); WHITE BLOOD COUNT 10.9 K/mm3 (4.0-10.0)
[2021-10-18 07:26] LABS: HEMOGLOBIN 6.9 GM/dL (10.7-15.3)
[2021-10-18 07:31] LABS: ALBUMIN 1.1 g/dl (3.4-5.0); CALCIUM 9.4 mg/dL (8.5-10.1)
[2021-10-18 07:32] LABS: BLOOD UREA NITROGEN 37.4 mg/dL (7-18)
[2021-10-18 07:34] LABS: CREATININE 1.3 mg/dL (0.55-1.3)
[2021-10-18 07:36] LABS: BILIRUBIN,TOTAL 1.4 mg/dL (0.2-1); TOT PROT 4.5 g/dl (6.4-8.2)
[2021-10-18] MEDS: AMINO ACIDS/PROTEIN HYDROLYS 30 ML LIQUID.PKT PO SCH ×2 (08:55→16:29)
[2021-10-18] MEDS: PANTOPRAZOLE SODIUM 40 MG VIAL IVPUSH SCH (10:11)
[2021-10-18] MEDS: CINACALCET HCL 30 MG TAB (FP) PO SCH ×2 (10:11→11:37)
[2021-10-18] MEDS: NOREPINEPHRINE BITARTRATE 16,000 MCG in DEXTROSE 5%-WATER - 16,000 MCG/500 ML INFUS.BAG IVPB SCH (10:11)
[2021-10-18] MEDS: ASPIRIN 81 MG CHEWABLE TABLETS GT SCH (10:11)
[2021-10-18] MEDS: MIDODRINE HCL 5 MG TABLET NGT SCH ×3 (10:11→17:16)
[2021-10-18] MEDS: COLLAGENASE CLOSTRIDIUM HIST. 30 GRAMS TUBE TP SCH (10:12)
[2021-10-18] MEDS: FENTANYL NS IVPB 500 MCG/100 ML BAG IVPB SCH ×3 (10:12→23:25)
[2021-10-18] MEDS ORDERED: PARICALCITOL 5 MCG/ML VIAL IVPUSH ONE (11:13)
[2021-10-18] MEDS: CHLORHEXIDINE GLUCONATE 4% CLEANSER FOR DECOLONIZATION TP SCH (23:24)
[2021-10-18] MEDS: ATORVASTATIN CA 20 MG TABLET (FP) GT SCH (23:24)
[2021-10-19 00:28] VITALS: TEMP 94
[2021-10-19 00:39] VITALS: BP 71/30; PULSE 90
[2021-10-19 01:53] LABS: VENOUS O2 SATURATION 91.8 % (70-80); VENOUS PCO2 56.5 mmHg (38-52)
[2021-10-19 02:31] LABS: LACTIC ACID 9.3 mmol/L (0.4-2.0); VENOUS PH 6.833 (7.310-7.410)
[2021-10-19 02:36] LABS: HEMATOCRIT 19.9 % (32.4-45.2); MCH 26.7 pg (25.7-33.7); MCHC 29.8 g/dl (32.0-36.0); MEAN CELL VOLUME 89.7 fl (80-96); MEAN PLT VOLUME 8.2 fl (7.5-11.1); PLATELET COUNT 77 10^3/uL (134-434); RBC 2.22 M/mm3 (3.60-5.2); RDW 21.3 % (11.6-15.6)
[2021-10-19 02:44] LABS: HEMOGLOBIN 5.9 GM/dL (10.7-15.3)
[2021-10-19 03:01] LABS: ANISOCYTOSIS 2+; MACROCYTOSIS 1+; TOXIC GRANULATION 2+
[2021-10-19 03:25] LABS: ALBUMIN 0.9 g/dl (3.4-5.0); ALK PHOS 103 U/L (45-117); ANION GAP 19 MMOL/L (8-16); BILIRUBIN,TOTAL 1.5 mg/dL (0.2-1); BLOOD UREA NITROGEN 38.6 mg/dL (7-18); CALCIUM 8.8 mg/dL (8.5-10.1); CHLORIDE 100 mmol/L (98-107); CO2 11 mmol/L (21-32); CREATININE 1.5 mg/dL (0.55-1.3); GLUCOSE,RANDOM 7 mg/dL (74-106); MAGNESIUM 2.2 mg/dL (1.8-2.4); PHOSPHOROUS 6.5 mg/dL (2.5-4.9); SGOT/AST 962 U/L (15-37); SGPT/ALT 275 U/L (13-61); SODIUM 129 mmol/L (136-145); TOT PROT 3.7 g/dl (6.4-8.2)
[2021-10-19] MEDS ORDERED: CINACALCET HCL 30 MG TAB (FP) PO SCH (10:00)
== END 2021-10-19 07:19 | disposition expired | DRG 4 ==
LOC: JER 12:58 → JERBED 13:09 → JICU 18:27
PROVIDERS: ADMIT Internal Medicine Pulmonary Disease; ATTEND Internal Medicine Pulmonary Disease
PROC: 5A1955Z Respiratory Ventilation, Greater than 96 Consecutive Hours (ICD-10-PCS; 2021-09-28)
PROC: 0BH17EZ Insertion of Endotracheal Airway into Trachea, Via Natural or Artificial Opening (ICD-10-PCS; 2021-09-28)
PROC: 05HN33Z Insertion of Infusion Device into Left Internal Jugular Vein, Percutaneous Approach (ICD-10-PCS; 2021-09-28)
PROC: 02HV33Z Insertion of Infusion Device into Superior Vena Cava, Percutaneous Approach (ICD-10-PCS; 2021-09-30)
PROC: B548ZZA Ultrasonography of Superior Vena Cava, Guidance (ICD-10-PCS; 2021-09-30)
PROC: 04HY32Z Insertion of Monitoring Device into Lower Artery, Percutaneous Approach (ICD-10-PCS; 2021-10-01)
PROC: 4A133B1 Monitoring of Arterial Pressure, Peripheral, Percutaneous Approach (ICD-10-PCS; 2021-10-01)
PROC: 4A133J1 Monitoring of Arterial Pulse, Peripheral, Percutaneous Approach (ICD-10-PCS; 2021-10-01)
PROC: 0BJ08ZZ Inspection of Tracheobronchial Tree, Via Natural or Artificial Opening Endoscopic (ICD-10-PCS; 2021-10-14)
PROC: 0B110F4 Bypass Trachea to Cutaneous with Tracheostomy Device, Open Approach (ICD-10-PCS; principal; 2021-10-15)
DX: A41.9 Sepsis, unspecified organism (principal); J18.9 Pneumonia, unspecified organism; I50.23 Acute on chronic systolic (congestive) heart failure; R65.21 Severe sepsis with septic shock; J96.01 Acute respiratory failure with hypoxia; I13.0 Hypertensive heart and chronic kidney disease with heart failure and stage 1 through stage 4 chronic kidney disease, or unspecified chronic kidney disease; N17.9 Acute kidney failure, unspecified; I24.8 Other forms of acute ischemic heart disease; I47.1 Supraventricular tachycardia; A04.72 Enterocolitis due to Clostridium difficile, not specified as recurrent; I25.10 Atherosclerotic heart disease of native coronary artery without angina pectoris; J44.9 Chronic obstructive pulmonary disease, unspecified; Z95.0 Presence of cardiac pacemaker; N18.9 Chronic kidney disease, unspecified; Z86.718 Personal history of other venous thrombosis and embolism; E78.5 Hyperlipidemia, unspecified; Z95.1 Presence of aortocoronary bypass graft; Z95.2 Presence of prosthetic heart valve; L98.429 Non-pressure chronic ulcer of back with unspecified severity; E88.09 Other disorders of plasma-protein metabolism, not elsewhere classified; D64.9 Anemia, unspecified; E83.52 Hypercalcemia; I48.0 Paroxysmal atrial fibrillation
CPT/HCPCS: 36415; 36430; 36600; 70450-TC; 71045-TC-FY; 74018-TC-FY; 76775-TC; 80048; 80053; 81003; 82272; 82553; 82803; 82962; 83605; 83735; 83880; 83970; 84100; 84484; 85025; 85027; 85610; 85730; 86707; 86803; 86850; 86900; 86901; 86922; 87040; 87070; 87086; 87186; 87205; 87324; 87350; 87449; 87493; 87804; 93005; 93010; 93306-TC; 93971; 94002; 99291; C9803-CS; G0480; J1644; J3480; J3490; P9047; P9058; U0003; U0005